=== PATIENT | female | born 1975 | race Caucasian/White ===

== ENCOUNTER 2020-05-04 04:37 | Day surgery (SDC) | payer SELFPAY ==
[2020-05-02 17:44] VITALS: BMI 27.3
[2020-05-04] MEDS ORDERED: HEPARIN NA (PORCINE) 5,000 UNITS/ML 1ML VIAL ONE (06:45)
[2020-05-04] MEDS ORDERED: ceFAZolin SODIUM 1 GM VIAL ONE ×2 (06:45→11:57)
[2020-05-04] MEDS ORDERED: LIDOCAINE HCL 1%, 10 MG/ML (20ML VIAL) ONE (07:40)
[2020-05-04] MEDS ORDERED: EPINEPHrine/PF 1 MG/1 ML (1:1,000) AMPULE ONE (07:40)
[2020-05-04] MEDS ORDERED: PROPOFOL 20 ML ONE ×4 (07:56)
[2020-05-04] MEDS ORDERED: fentaNYL CITRATE 250 MCG/5 ML VIAL ONE (07:56)
[2020-05-04] MEDS ORDERED: ALBUTEROL SO4 HFA INHALER IH ONE (07:56)
[2020-05-04] MEDS ORDERED: LIDOCAINE HCL/PF 2% SDV 5ML VIAL ONE (07:57)
[2020-05-04] MEDS ORDERED: SUCCINYLCHOLINE CHLORIDE 200 MG/10 ML SYRINGE ONE (07:57)
[2020-05-04] MEDS ORDERED: MIDAZOLAM HCL 2 MG/2 ML SINGLE DOSE VIAL ONE (07:57)
[2020-05-04] MEDS ORDERED: ROCURONIUM BROMIDE 50 MG/5 ML SYRINGE ONE ×2 (07:57→09:11)
[2020-05-04] MEDS ORDERED: LIDOCAINE HCL 2% JELLY (5 ML/TUBE) ONE (07:58)
[2020-05-04] MEDS ORDERED: ceFAZolin SODIUM 1 GM VIAL IVPB ONE (08:19)
[2020-05-04] MEDS ORDERED: EPHEDRINE SULFATE/0.9% NACL/PF 50 MG/10 ML SYRINGE NR ONE (08:20)
[2020-05-04] MEDS ORDERED: KETOROLAC TROMETHAMINE 30 MG/1 ML VIAL ONE (08:40)
[2020-05-04] MEDS ORDERED: DEXAMETHASONE SOD PHOSPHATE 4 MG/1 ML VIAL ONE (08:40)
[2020-05-04] MEDS ORDERED: LIDOCAINE HCL 1%, 10 MG/ML (20ML VIAL) NR ONE (08:42)
[2020-05-04] MEDS ORDERED: EPINEPHrine 1:1,000 1 MG/1 ML - 30ML VIAL (INJECTION) SQ ONE (08:42)
[2020-05-04] MEDS ORDERED: BACITRACIN 15 GM TUBE TOPICAL OINTMENT ONE (09:10)
[2020-05-04] MEDS ORDERED: NEOSTIGMINE METHYLSULFATE 0.5 MG/ML - 10 ML MDV ONE (11:22)
[2020-05-04] MEDS ORDERED: GLYCOPYRROLATE 0.2 MG/1 ML VIAL ONE (11:22)
[2020-05-04] MEDS ORDERED: PROMETHAZINE HCL 25 MG/1 ML VIAL IVPUSH PRN (12:27)
[2020-05-04] MEDS ORDERED: ONDANSETRON 4 MG/2 ML VIAL IVPUSH PRN (12:27)
[2020-05-04] MEDS ORDERED: oxyCODONE HCL 5 MG TABLET PO PRN ×4 (12:27→12:34)
[2020-05-04] MEDS ORDERED: ONDANSETRON 4 MG/2 ML VIAL IVPB PRN (12:34)
--- NOTE | 2020-05-04 12:38 | OP ---
Operative Note - Note: Operative Date: 05/04/20 Pre-Operative Diagnosis: medial thigh deformity Operation: liposuction to medial thighs with medial thigh lift Post-Operative Diagnosis: Same as Pre-op Surgeon: Parvez Landin Color Control Supervisor: Joselo Shrestha Anesthesia: General Drains & Tubes with Location: OLAYINKA x1 each thigh Operative Report Dictated: Yes
[2020-05-04] MEDS ORDERED: LACTATED RINGERS SOLUTION 1,000 ML IV SCH (12:45)
[2020-05-04] MEDS ORDERED: oxyCODONE HCL 5 MG TABLET ONE (14:09)
[2020-05-04 15:38] VITALS: TEMP 98.1
[2020-05-04 17:17] VITALS: BP 119/71; PULSE 77
--- NOTE | 2020-05-04 19:27 | OP ---
DATE OF OPERATION: 05/04/2020 TITLE OF PROCEDURE: Bilateral medial thigh liposuction with medial thigh lift. SURGEON: Parvez Landin MD. PHONE SPECIALIST: ASHLEY Lu. PREOPERATIVE DIAGNOSIS: Post-bariatric medial thigh skin subcutaneous deformity. POSTOPERATIVE DIAGNOSIS: Post-bariatric medial thigh skin subcutaneous deformity. DESCRIPTION OF PROCEDURE: The patient is seen in the holding area, marked for incisions and resulting scars. Risks, benefits, and alternatives to the procedure are thoroughly discussed including but not limited to neurologic injury, irregular result, leg swelling, lymphedema, asymmetry. Patient understands and agrees to proceed. We also discussed the imperfect ability to place the ultimate position of the scar or difficulties with the introitus . Patient also agrees with these and agrees to proceed. After markings are made, patient is brought to the operating room, placed in a supine position. After anesthesia is given, 5000 units of subcutaneous heparin are given. Patient is given 2 g of Ancef. Patient is placed in a low lithotomy position with all pressure points carefully padded by both the surgical anesthesia and nursing teams. She is then prepped and draped in the standard surgical fashion. A timeout is called. Patient procedure, side, sites are verified. At this point, 2 small stab wound incisions are made for infiltration of wetting solution. Wetting solution in this case is 1 L of normal saline with 20 mL of 1% lidocaine plain and 1 ampule of 1:100,000 epinephrine, a total of 1 L is infiltrated on each thigh. A full 15 minutes is awaited prior to any liposuction. After 15 minutes, the safe technique of liposuction is performed with pre- and post-tunneling using a 4-mm exploded tip cannula without suction. In between these steps, suction is performed using standard traditional liposuction 4-mm cannulas. The total aspirate for each side is 700 mL of fat smooth even contour. In order to preserve lymphatics, the debulking is done purely by liposuction. At this point the incision markings are refreshed. The left thigh is addressed first. The skin pattern is excised, skin only, leaving all deep tissue, subcutaneous fat. Having done the liposuction, there is adequate mobility of the inferior skin. Spreading only in 3 separate spots exposes the Colles fascia medially for anchor sutures, anchor sutures between the Colles fascia and the Hernan's fascia of the inferior skin flap are then placed with a series of interrupted 2-0 PDS suture. Once these anchor sutures are applied, size 10 flat OLAYINKA drain is placed to the wound and brought out through the anterior extent of the incision and closure is then performed after tailor tacking with aleks. The closure is performed with a series of interrupted buried deep dermal 3-0 Monocryl suture followed by a running mid dermal 3-0 Monocryl V-Loc suture. Liposuction holes are closed with 5-0 nylon suture. Mirror image procedure is performed on the contralateral side. Care is taken to have both legs in a symmetrical position for a result with even tension, even position and scars, and even contour. With this achieved, the patient is returned to the supine position, Steri-Strips are placed on the incisions. ABD gauze and the inguinal creases where the drains are exiting the wounds, and a compression garment was applied. Patient is awoken entirely neurovascularly intact, moving all extremities with normal sensation . Patient tolerated procedure well, transferred to recovery without complication. Maninder [id number]
== END 2020-05-04 17:00 | disposition home or self-care (01) ==
LOC: JASU-SURG 04:37
PROVIDERS: ATTEND Plastic Surgery
PROC: 0J0L3ZZ Alteration of Right Upper Leg Subcutaneous Tissue and Fascia, Percutaneous Approach (ICD-10-PCS; 2020-05-04)
PROC: 0J0M0ZZ Alteration of Left Upper Leg Subcutaneous Tissue and Fascia, Open Approach (ICD-10-PCS; 2020-05-04)
PROC: 0J0L0ZZ Alteration of Right Upper Leg Subcutaneous Tissue and Fascia, Open Approach (ICD-10-PCS; 2020-05-04)
PROC: 0J0M3ZZ Alteration of Left Upper Leg Subcutaneous Tissue and Fascia, Percutaneous Approach (ICD-10-PCS; principal; 2020-05-04 08:00)
DX: Z41.1 Encounter for cosmetic surgery (principal); L98.7 Excessive and redundant skin and subcutaneous tissue
CPT/HCPCS: 84703; 94760; J1644